=== PATIENT | female | born 1980 | race Caucasian/White ===

== ENCOUNTER → 2019-02-14 | Outpatient (CLI) | payer OTHER ==
[~2019-02-14] VITALS: Ht 165.1 cm; Wt 86.2 kg
[~2019-02-14] MED LIST: BACLOFEN 10MG T10 MG PO; DULOXETINE HCL30 MG PO; METHOCARBAMOL500 M2 PO; TIZANIDINE HCL2 M1 PO; VALIUM10 MG PO; VITAMIN B12-FO1 EAC1 PO; VITAMIN C500 M1 PO; VITAMIN D32000 UNIT PO
[2019-02-14 09:51] VITALS: BP 140/96
--- NOTE | 2019-02-14 10:39 | NUR ---
Pain Clinic Assessment: 1. History of Osteoarthritis: Not Applicable History of Rheumatoid Arthritis: Not Applicable 2. Height: 5 ft. 5 in. 165.1 cm. Weight: 190.0 lb. oz. 86.184 kg. Patient's BMI: 31.6 3. Vital Signs: BP: 140/96 Pulse: 80 Resp: 18 Temp: 02 Sat: 99 ECG Mon: 4. Pain Intensity: 8 5. Fall Risk: Dizziness: N Needs help standing or walking: N Fallen in the last 3 months: N Fall risk comments: 6. Patient on Blood Thinner: None 7. History of Hypertension: N 8. Opioid Therapy greater than 6 weeks: N Opiate Contract Signed: 9. Risk Assessment Tool Provided: 10. Functional Assessment Tool: 11. Recreational Drug Use: Never Drug Type: Tobacco Use: Current Every Day Smoker Tobacco Type: Cigarettes Amount or Packs/day: 1 How Many Years: 20 Alcohol Use: Yes Frequency: Special Occasions Quant: 1
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
== END ==
LOC: PAIN 08:45
DX: M54.2 Cervicalgia (principal); M79.18 Myalgia, other site

== ENCOUNTER → 2019-02-21 | Outpatient (CLI) | payer OTHER ==
[~2019-02-21] VITALS: Ht 165.1 cm; Wt 90.6 kg
[2019-02-21 12:44] VITALS: BP 117/75
--- NOTE | 2019-02-21 12:57 | NUR ---
Pain Clinic Assessment: 1. History of Osteoarthritis: Not Applicable History of Rheumatoid Arthritis: Not Applicable 2. Height: 5 ft. 5 in. 165.1 cm. Weight: 199.8 lb. oz. 90.629 kg. Patient's BMI: 33.2 3. Vital Signs: BP: 117/75 Pulse: 74 Resp: 20 Temp: 02 Sat: 99 ECG Mon: 4. Pain Intensity: 7-8 5. Fall Risk: Dizziness: N Needs help standing or walking: N Fallen in the last 3 months: N Fall risk comments: 6. Patient on Blood Thinner: None 7. History of Hypertension: N 8. Opioid Therapy greater than 6 weeks: N Opiate Contract Signed: 9. Risk Assessment Tool Provided: 10. Functional Assessment Tool: 11. Recreational Drug Use: Never Drug Type: Tobacco Use: Current Every Day Smoker Tobacco Type: Amount or Packs/day: How Many Years: Alcohol Use: Yes Frequency: Quant:
--- NOTE | 2019-02-22 12:57 | HPC ---
[facility] [address] [place] [address] PAIN MANAGEMENT CONSULTATION Name: DERRICK ELMORE Room #: REG [facility] M..#: [id number] Admission: 02/21/19 Attend Phys: Julian Merida DO Discharge: Date of : 76 Report #: [id number] THIS REPORT FOR: //name// CC: TATIANA HANNA CARD CHECKER Physician staff DATE OF SERVICE: 02/21/2019 REFERRING PHYSICIAN: Jalyn Hanna, Nurse Practitioner. CHIEF COMPLAINT: Myofascial pain. HISTORY OF PRESENT ILLNESS: As you know, the patient is a 38-year-old female seen in consultation per the request of nurse practitioner, Jalyn Hanna in regards to myofascial pain involving the cervical spine and upper back. She was seen in consultation on 02/14/2019, diagnosed with chronic cervicalgia and myofascial pain. She was established in today's appointment to undergo trigger point injections to address ongoing symptoms. The patient has trialed conservative treatment utilizing medication management, also trialled physical therapy. Unfortunately, these did not provide much in the way of improvement in symptoms. She was referred to our clinic to trial trigger point injections in hopes of improving pain. She was seen on 02/14/2019, where she was complaining of pain up to a level of 7/10. She returns today with pain similar at 7/10. She denies new injury, trauma or any changes in medical history since our last visit. ALLERGIES: TRAMADOL. CURRENT MEDICATIONS: Vitamin B12, cholecalciferol, ascorbic acid, baclofen, Valium. SOCIAL HISTORY: The patient is a current smoker, smokes about a pack a day. Denies IV or illicit drug use. Admits occasional alcohol beverage. She is , living with her spouse who is present in room today. IMAGING: No new imaging available. PHYSICAL EXAMINATION: VITAL SIGNS: Blood pressure 117/75, pulse 74, respiratory rate 20 and unlabored. The patient is 99% on room air. Height 5 feet 5 inches tall, weight 199.8 pounds, BMI calculated 33.2. GENERAL: Well-developed, well-nourished, well-hydrated 38-year-old female appearing stated age, pain is rated today 7-8/10. HEENT: Normocephalic, atraumatic. Pupils equal, round, reactive to light. [facility] [address] [place] [address] PAIN MANAGEMENT CONSULTATION Name: DERRICK ELMORE Room #: REG [facility] Ag#: [id number] Admission: 02/21/19 Attend Phys: Julian Merida DO Discharge: Date of : 76 Report #: [id number] Extraocular muscles are intact. EXTREMITIES: Show no clubbing, no cyanosis, no edema. MUSCULOSKELETAL: Palpatory tenderness over the paraspinal musculature of the cervical spine. No spinous process tenderness. By utilizing one single finger and palpating through the areas of discomfort, we were able to locate 17 trigger points that radiated typical pain pattern. Muscle bulk and tone appears symmetrical in comparing left upper extremity to right. Deep tendon reflexes are symmetrical at biceps, brachialis and triceps. Spurling's test is negative. ASSESSMENT: 1. Myofascial pain. 2. Chronic cervicalgia. PLAN: 1. The patient returns today in followup visit to undergo trigger point injections. We were able to elicit 17 trigger points that radiated the patient's typical pain pattern. The patient was advised of the risks and the benefits of trigger point injections. These risks include but are not necessarily limited to bleeding, bruising, infection, worsening pain, no relief of pain, also risk of temporary or permanent muscle weakness, temporary or permanent nerve damage, possible pneumothorax and . The patient states understood and wished to proceed. 2. The patient states she is having difficulty with tizanidine. She is taking 2 mg dose, but this is causing too much sedation. We recommend changing over to methocarbamol 500 mg dose 1 tab p.o. t.i.d. I advised the patient not drive or operate heavy equipment until she has taken the medication and see the effects may be. She should watch for side effects of sleepiness, disorientation, confusion, and mental slowing. She was given a prescription of #90 tablets with 2 refills. Prescription can be filled at her earliest convenience. She is to dispose of the tizanidine in an appropriate manner. 3. We will see the patient back in followup visit on an as needed basis for possible next in the series of trigger point injections. We have made the patient a tentative appointment for 03/14/2019 at 1500 hours. If she does not need to undergo the procedure at that time, she can cancel this appointment. PROCEDURE NOTE DESCRIPTION OF PROCEDURE: Trigger point injections. After obtaining written consent, the patient was placed in a seated position. By palpating using a single finger 17 trigger points were identified that reproduced the patient's typical radiating pain pattern. Trigger points were located within the paraspinal musculature of the cervical and upper thoracic area. Each of the target sites of injections were cleansed using aseptic technique. A 27-gauge 1-1/4-inch needle was advanced towards each trigger point until the patient's typical radiating pain pattern was reproduced. [address] [address] PAIN MANAGEMENT CONSULTATION Name: DERRICK ELMORE Room #: REG [facility]#: [id number] Admission: 02/21/19 Attend Phys: Julian Merida DO Discharge: Date of : 76 Report #: [id number] After negative aspiration for heme, 1 mL of a solution containing 2 mL 40 mg per mL, 80 mg total triamcinolone and 15 mL of bupivacaine 0.5% injected in a fanned out distribution at each of the trigger points. A total volume of 17 mL being given. Sterile bandages were placed over each injection site. The patient tolerated procedure well, carefully escorted to recovery room in stable condition. No apparent complications. After meeting our discharge criteria, the patient discharged home. <ELECTRONICALLY SIGNED> By: Julian Merida DO 02/22/19 1257 [id number] 2040 Julian Merida DO /nt
== END | disposition home or self-care (01) ==
LOC: PAIN 06:48
DX: M79.18 Myalgia, other site (principal); M54.2 Cervicalgia; G89.29 Other chronic pain; F17.210 Nicotine dependence, cigarettes, uncomplicated; Z98.890 Other specified postprocedural states; Z88.8 Allergy status to other drugs, medicaments and biological substances; Z79.899 Other long term (current) drug therapy